=== PATIENT | male | born 1985 | race Hispanic/Latino ===

== ENCOUNTER → 2017-11-17 09:01 | Outpatient (CLI) | payer BC, SELFPAY ==
[2017-11-17 09:36] LABS: Alanine Aminotransferase 49 IU/L (21-72); Albumin 4.7 g/dL (3.5-5.0); Albumin Globulin Ratio 1.4 (1.0-2.8); Alkaline Phosphatase 100 U/L (38-126); Aspartate Aminotransferase 32 IU/L (17-59); BUN Creatinine Ratio 18.6 (6-22); Bilirubin Total 0.5 mg/dL (0.2-1.3); Blood Urea Nitrogen 13 mg/dL (9-20); Calcium 9.4 mg/dL (8.4-10.2); Carbon Dioxide 26 mmol/L (22-32); Chloride 105 mmol/L (98-107); Cholesterol 227 mg/dL (140-199); Estimated Glomerular Filt Rate > 60.0 mL/min (>60); Globulin 3.3 g/dL (1.7-4.1); Glucose 164 mg/dL (70-100); HDL Cholesterol 44 mg/dL (40-60); HEMOLYSIS 18 (0-50); LDL Cholesterol Calculated 124 mg/dL (<100); Sodium 142 mmol/L (137-145); Triglycerides 295 mg/dL (35-150)
[2017-11-17 09:37] LABS: Hemoglobin A1C% w Est Avg Glu 6.7 % (4.0-6.0)
[2017-11-17 10:20] LABS: Creatinine Urine Random 124.7 mg/dL
[2017-11-17 10:25] LABS: Microalbumi Creatinin Ratio Ur 5.6 ug/mg CR (<30); Microalbumin Urine Random 0.7 mg/dL (0-1.6)
== END ==
PROVIDERS: PCP Physician Assistant; Visit Provider Physician Assistant
DX: E10.65 Type 1 diabetes mellitus with hyperglycemia (principal)
CPT/HCPCS: 36415; 80053; 80061; 82043; 82570; 83036

== ENCOUNTER → 2018-09-21 10:18 | Outpatient (CLI) | payer BC, SELFPAY ==
[2018-09-21 12:18] LABS: Hemoglobin A1C% w Est Avg Glu 9.5 % (4.0-6.0)
[2018-09-21 12:28] LABS: Alanine Aminotransferase 28 IU/L (21-72); Albumin 4.8 g/dL (3.5-5.0); Albumin Globulin Ratio 1.5 (1.0-2.8); Alkaline Phosphatase 112 U/L (38-126); Aspartate Aminotransferase 19 IU/L (17-59); Bilirubin Total 0.6 mg/dL (0.2-1.3); Blood Urea Nitrogen 16 mg/dL (9-20); Calcium 9.4 mg/dL (8.4-10.2); Carbon Dioxide 28 mmol/L (22-32); Chloride 99 mmol/L (98-107); Cholesterol 205 mg/dL (140-199); Estimated Glomerular Filt Rate > 60.0 mL/min (>60); Globulin 3.2 g/dL (1.7-4.1); Glucose 206 mg/dL (70-100); HDL Cholesterol 34 mg/dL (40-60); HEMOLYSIS < 15 (0-50); LDL Cholesterol Calculated 105 mg/dL (<100); Potassium 3.8 mmol/L (3.4-5.1); Sodium 139 mmol/L (137-145); Triglycerides 332 mg/dL (35-150)
[2018-09-21 12:44] LABS: Microalbumin Urine Random 5.4 mg/dL (0-1.6)
[2018-09-21 13:17] LABS: Creatinine Urine Random 369.9 mg/dL; Microalbumi Creatinin Ratio Ur 14.5 ug/mg CR (<30)
== END ==
PROVIDERS: PCP Physician Assistant; Visit Provider Physician Assistant
DX: E10.9 Type 1 diabetes mellitus without complications (principal); E78.2 Mixed hyperlipidemia
CPT/HCPCS: 36415; 80053; 80061; 82043; 82570; 83036

== ENCOUNTER 2023-05-20 11:03 | Emergency (ER) | payer BC, SELFPAY ==
[2023-05-20] VITALS (8 sets, daily range): BP systolic 131–145; BP diastolic 73–96; PULSE 80–97; RESP 18; TEMP 36.6; O2SAT 97–100; BMI 27.1
[2023-05-20] MEDS: ONDANSETRON 4 MG/2 ML INJ IV (11:52)
[2023-05-20 11:55] LABS: Add Manual Diff / Slide Review NO; Basophils Absolute Auto 100 /uL (0-100); Basophils Percent Auto 0.6 % (0-2); Eosinophils Absolute Auto 0 /uL (0-450); Eosinophils Percent Auto 0.3 % (2-4); Hematocrit 42.9 % (41-53); Lymphocytes Absolute Auto 1600 /uL (1100-4500); Lymphocytes Percent Auto 12.6 % (25-40); Mean Corpuscular Hemoglobin 30.6 PG (26-34); Mean Corpuscular Volume 87.2 fL (80-100); Monocytes Absolute Auto 1000 /uL (0-900); Monocytes Percent Auto 7.6 % (3-14); Neutrophils Absolute Auto 9900 /uL (1500-7000); Neutrophils Percent Auto 78.9 % (50-75); Platelet Count 309 X10^3/uL (150-400); Red Blood Cell Count 4.92 X10^6/uL (4.5-5.9); Red Cell Distribution Width 13.1 % (11.6-14.8); White Blood Cell Count 12.6 X10^3/uL (4.5-11.0)
[2023-05-20 12:05] LABS: Alanine Aminotransferase 36 IU/L (<50); Albumin 4.6 g/dL (3.5-5.0); Albumin Globulin Ratio 1.4 (1.0-2.8); Alkaline Phosphatase 87 U/L (38-126); BUN Creatinine Ratio 36.7 (6-22); Bilirubin Total 0.6 mg/dL (0.2-1.3); Blood Urea Nitrogen 22 mg/dL (9-20); Calcium 10.6 mg/dL (8.4-10.2); Carbon Dioxide 24 mmol/L (22-32); Chloride 101 mmol/L (98-107); Estimated Glomerular Filt Rate > 60 mL/min (>60); Globulin 3.2 g/dL (1.7-4.1); Glucose 118 mg/dL (70-100); Lipase 50 U/L (23-300); Potassium 3.5 mmol/L (3.4-5.1); Sodium 137 mmol/L (137-145); Total Protein 7.8 g/dL (6.3-8.2)
[2023-05-20 12:28] LABS: Lactate (Lactic Acid) 3.5 mmol/L (0.7-2.1)
[2023-05-20 12:29] LABS: Ethanol (ETOH) < 10 mg/dL
[2023-05-20] MEDS: SODIUM CHLORIDE 0.9% 1,000 ML 1000 ML IV (12:51)
--- NOTE | 2023-05-20 13:30 | ED_ITS ---
HPI - General Adult General Chief complaint: Diabetic Problem Stated complaint: per pt low blood sugar Time Seen by Provider: 05/20/23 13:01 Source: patient Mode of arrival: Wheelchair Limitations: no limitations History of Present Illness HPI narrative: Patient is a 38-year-old male. He has a diabetic. He states that he does have a prescription for insulin but he only uses it ?when needed? he states he has not used it for several months. He does admit that he has not checked his blood sugar for several months. He states that this morning he woke up and felt clammy, sweaty. Has diffuse abdominal pain. He checked his blood sugar this morning. 1 glucose meter read ?high? the other meter did not work at all for him. He states that he thinks his blood sugar was low because that is how he felt. He states that he ate something. He started to feel better. As the morning went on his symptoms returned again. Some nausea no vomiting. No chest pain. No shortness of breath. No change in urinary symptoms. Related Data Home Medications Medication Instructions Recorded Confirmed insulin lispro 100 unit/mL 20 SQ TID ##30 11/23/16 11/23/17 subcutaneous solution (Humalog U-100 Insulin) Previous Rx's Medication Instructions Recorded Glucose: Home Monitor u QID ##1 11/23/16 Glucose: Test Strips str QID ##100 11/23/16 insulin aspart U-100 100 unit/mL 15 u SQ AC PRN #100 mL 11/23/16 subcutaneous solution (Novolog U-100 Insulin aspart) Syringes: Ultra Fine Insulin syr SQ TID ##100 06/09/17 Syringe w/Needle atorvastatin 10 mg tablet 10 mg PO DAILY #90 tabs 11/23/17 insulin glargine U-300 conc 300 70 unit (0.23 mL) SUBCUT QDAY #10 11/23/17 unit/mL (1.5 mL) subcutaneous pen ea (Toufloridalmao SoloStar U-300 Insulin) insulin aspart U-100 100 unit/mL 15 unit (0.15 mL) SUBCUT QDAY #2 ea 05/22/18 (3 mL) subcutaneous pen (Novolog FlexPen U-100 Insulin aspart) Allergies Allergy/AdvReac Type Severity Reaction Status Date / Time chocolate flavor Allergy Unknown Verified 05/20/23 11:10 [CHOCOLATE FLAVOR] Review of Systems Review of Systems ROS Unobtainable: All systems reviewed & are unremarkable except as noted in HPI and below Patient History Medical History Diabetes (Unknown) Social History Smoking Status: Current every day smoker Tobacco: How many years used: 10 second hand exposure: No alcohol intake: current (whisky 3 to 4 times a week.) substance use type: does not use Smoking Status: Current every day smoker tobacco type: vaping alcohol intake frequency: holidays/special occasions only Substance Use Type: does not use Exam Initial Vital Signs Initial Vital Signs: Vital Signs Temperature 97.9 F 05/20/23 11:10 Pulse Rate 97 H 05/20/23 11:10 Respiratory Rate 18 05/20/23 11:10 Blood Pressure 141/77 H 05/20/23 11:10 Pulse Oximetry 100 05/20/23 11:10 Oxygen Delivery Method Room Air 05/20/23 11:10 Const General: cooperative and No ill appearing HENMT Head: normal to inspection and normocephalic Resp Effort & Inspection: normal respiratory effort Auscultation: clear to auscultation bilaterally Cardio Rate: regular rate Rhythm: regular rhythm GI Inspection: normal to inspection Neuro General: patient alert, patient awake, patient oriented x3 and moves all extremities Extrem General: capillary refill normal Course Orders Ordered: ED Orders 05/20/23 11:40 Complete Blood Count AUTO DIFF Stat Comprehensive Metabolic Panel Stat Ethanol (ETOH) Stat Ketones (Beta-Hydroxybutyrate) Stat Lactate (Lactic Acid) Stat Lipase Stat 05/20/23 12:06 EKG-12 Lead Stat 05/20/23 13:31 Urine Drug Screen, Rapid Stat Ondansetron HCl (Ondansetron 4 Mg/2 Ml Inj) 4 mg IV NOW PRN PRN Reason: Nausea And Vomiting Last Admin: 05/20/23 11:52 Dose: 4 mg Documented By: CHUCKIE Discontinued Medications Sodium Chloride (Normal Saline 0.9%) 1,000 mls @ 1,000 mls/hr IV BOLUS ONE Stop: 05/20/23 13:03 Last Infusion: 05/20/23 14:00 Dose: Infused Documented By: Admin: 05/20/23 12:51 Dose: 1,000 mls/hr Documented By: CHUCKIE Vital Signs Vital signs: Vital Signs - 8 hr 05/20/23 11:10 05/20/23 11:24 05/20/23 11:24 Temperature 97.9 F Pulse Rate 97 H 92 H Respiratory Rate 18 Blood Pressure 141/77 H 145/75 H Pulse Oximetry 100 100 Oxygen Delivery Method Room Air 05/20/23 11:30 05/20/23 11:30 05/20/23 12:00 Temperature Pulse Rate 92 H Respiratory Rate Blood Pressure 138/96 H 135/82 Pulse Oximetry 100 Oxygen Delivery Method Room Air 05/20/23 12:00 05/20/23 12:30 05/20/23 12:30 Temperature Pulse Rate 83 86 Respiratory Rate Blood Pressure 144/76 H Pulse Oximetry 99 98 Oxygen Delivery Method Room Air 05/20/23 13:00 05/20/23 13:00 05/20/23 13:30 Temperature Pulse Rate 90 80 Respiratory Rate Blood Pressure 131/84 Pulse Oximetry 97 97 Oxygen Delivery Method 05/20/23 13:30 05/20/23 14:00 Temperature Pulse Rate 82 Respiratory Rate Blood Pressure 132/73 134/75 Pulse Oximetry 98 Oxygen Delivery Method Room Air Medical Decision Making Lab Data Lab results reviewed: Yes I reviewed the patient's lab results. 05/20/23 11:40 05/20/23 11:40 Labs: Lab Results 05/20/23 05/20/23 Range/Units 11:40 13:31 WBC 12.6 H (4.5-11.0) X10^3/uL RBC 4.92 (4.5-5.9) X10^6/uL Hgb 15.0 (13.5-17.5) g/dL Hct 42.9 (41-53) % MCV 87.2 (80-100) fL MCH 30.6 (26-34) PG MCHC 35.0 (30-36) % RDW 13.1 (11.6-14.8) % Plt Count 309 (150-400) X10^3/uL Neut % (Auto) 78.9 H (50-75) % Lymph % (Auto) 12.6 L (25-40) % [place] % (Auto) 7.6 (3-14) % Eos % (Auto) 0.3 L (2-4) % Baso % (Auto) 0.6 (0-2) % Neut # (Auto) 9900 H (0610-4859) /uL Lymph # (Auto) 1600 (5166-9556) /uL [place] # (Auto) 1000 H (0-900) /uL Eos # (Auto) 0 (0-450) /uL Baso # (Auto) 100 (0-100) /uL Sodium 137 (137-145) mmol/L Potassium 3.5 (3.4-5.1) mmol/L Chloride 101 (98-107) mmol/L Carbon Dioxide 24 (22-32) mmol/L BUN 22 H (9-20) mg/dL Creatinine 0.60 L (0.66-1.25) mg/dL Estimated GFR > 60 (>60) mL/min BUN/Creatinine Ratio 36.7 H (6-22) Glucose 118 H (70-100) mg/dL Lactate 3.5 H (0.7-2.1) mmol/L Calcium 10.6 H (8.4-10.2) mg/dL Total Bilirubin 0.6 (0.2-1.3) mg/dL AST TNP ALT 36 (<50) IU/L Alkaline Phosphatase 87 (38-126) U/L Total Protein 7.8 (6.3-8.2) g/dL Albumin 4.6 (3.5-5.0) g/dL Globulin 3.2 (1.7-4.1) g/dL Albumin/Globulin Ratio 1.4 (1.0-2.8) Lipase 50 (23-300) U/L U Opiates 300ng/mL cut Negative (Negative) Ur Oxycodone Screen Negative (Negative) Urine Methadone Screen Negative (Negative) Ur Barbiturates Screen Negative (Negative) U Tricyclic Antidepress Negative (Negative) Ur Phencyclidine Scrn Negative (Negative) Ur Amphetamines Screen Negative (Negative) U Methamphetamines Scrn Negative (Negative) Ur MDMA Scrn (Ecstasy) Negative (Negative) U Benzodiazepines Scrn Negative (Negative) Urine Cocaine Screen Negative (Negative) U Marijuana (THC) Screen Negative (Negative) Urine pH Normal (Normal) Urine Specific [place] Normal (Normal) Ethyl Alcohol < 10 ( - 10) mg/dL Ketones 0.10 (<0.27) mmol/L Ur Creatinine Normal (Normal) Urine Dip Bedside Urine Glucose Negative Bedside Urine Bilirubin - Negative Bedside Urine Ketone - Negative Urine Specific [place] 1.015 Bedside Urine Occult Blood - Negative Bedside Urine pH 6.0 Bedside Urine Protein - Negative Bedside Urine Urobilinogen - Negative Bedside Urine Nitrite - Negative Bedside Urine Leukocytes - Negative Esterase Point of care testing: Urine Dip Bedside Urine Glucose Negative Bedside Urine Bilirubin - Negative Bedside Urine Ketone - Negative Urine Specific [place] 1.015 Bedside Urine Occult Blood - Negative Bedside Urine pH 6.0 Bedside Urine Protein - Negative Bedside Urine Urobilinogen - Negative Bedside Urine Nitrite - Negative Bedside Urine Leukocytes - Negative Esterase MDM Narrative Medical decision making narrative: Patient states he is feeling much better during his time here. Patient is not DKA. Not hypoglycemic. I suspect that this morning he did become hypoglycemic and then he ate the food and made his symptoms somewhat better. We had a long discussion about this. He only infrequently takes his blood sugar at home. I advised that he check his monitor so that he was getting accurate readings. I recommended that he contact a primary doctor for a follow-up. There was no indication for admission to hospital. Patient was given return. He expressed understanding and agreement. Discharge Plan Departure Patient Disposition: Home Clinical Impression: Diabetes Instructions: Complications of Diabetes (Alternative Therapy) Activity Restrictions/Additional Instructions: It is important that you take all of your medications as directed. It is also important that you make contact with the primary doctor. You can contact [phone] for a follow-up. He was also important that you check your blood sugar often. Return to the emergency department for new symptoms. Prescriptions: No Action atorvastatin 10 mg tablet 10 mg PO DAILY Qty: 90 1RF insulin glargine U-300 conc [Toujeo SoloStar U-300 Insulin] 300 unit/mL (1.5 mL) insulin pen 70 unit SUBCUT QDAY Qty: 10 3RF Rx Instructions: Inject 70 units once daily for high blood sugar. Dispense 10 pens insulin lispro [Humalog U-100 Insulin] 100 UNIT/1 ML solution 20 SQ TID Qty: 30 insulin aspart U-100 [Novolog U-100 Insulin aspart] 100 UNIT/1 ML solution 15 u SQ AC PRNQty: 100 5RF Glucose: Home Monitor QID Qty: 1 0RF Glucose: Test Strips QID Qty: 100 0RF Syringes: Ultra Fine Insulin Syringe w/Needle SQ TID Qty: 100 3RF insulin aspart U-100 [Novolog FlexPen U-100 Insulin] 100 unit/mL insulin pen 15 unit SUBCUT QDAY Qty: 2 0RF Rx Instructions: Inject 15 units twice daily IF NEEDED for high blood sugar Referrals: Aliza Wharton PA-C [Primary Care Provider] - Stand Alone Forms: Patient Portal/API
[2023-05-20 13:43] LABS: UR Morphine/Opiate cutoff 300 Negative (Negative); Ur Creatinine Normal (Normal); Ur Specific Gravity Normal (Normal); Urine Amphetamines Negative (Negative); Urine Barbiturates Negative (Negative); Urine Benzodiazepines Negative (Negative); Urine Cocaine Negative (Negative); Urine MDMA Negative (Negative); Urine Methadone Negative (Negative); Urine Methamphetamines Negative (Negative); Urine Oxycodone Negative (Negative); Urine Phencyclidine Negative (Negative); Urine Tetrahydrocannabinol Negative (Negative); Urine Tricyclic Antidepressant Negative (Negative); Urine pH Normal (Normal)
[2023-05-20 13:55] LABS: Reflexed Lactate in 2 Hours Y
--- NOTE | 2023-05-20 14:00 | PC.NURSE ---
Dr Crespo declined to have repeat lactate at this time.
[2023-05-20 15:21] LABS: HEMOLYSIS < 15 (0-50)
[2023-05-20 15:22] LABS: Aspartate Aminotransferase 35 IU/L (17-59)
== END 2023-05-20 14:33 | disposition home or self-care (01) ==
PROVIDERS: Emergency Provider Emergency Medicine; PCP Physician Assistant
DX: E11.9 Type 2 diabetes mellitus without complications (principal)
CPT/HCPCS: 36415; 80053; 80305; 80320; 81003; 82009; 83605; 83690; 85025; 96361; 96374; 99284; J2405